=== PATIENT | female | born 2005 | race Caucasian/White ===

== ENCOUNTER 2025-01-11 09:25 | Emergency (ER) | payer MEDICAID, SELFPAY ==
[2025-01-11 09:26] VITALS: BMI 29.2
[2025-01-11 09:49] VITALS: BP 133/84; PULSE 74; RESP 19; O2SAT 96
--- NOTE | 2025-01-11 10:09 | EDNOTE_ITS ---
Upper Extremity Injury RME/HPI General Chief Complaint: Burn/Smoke Inhalation Stated Complaint: RIGHT BURNED PALM, LEFT FIRST FINGER INJURY Time Seen by Provider: 01/11/25 09:53 Source: patient Arrival date/time: 01/11/25 09:25 19-year-old female with no known medical history presents to the emergency room with a chief complaint of a burn to the right palm of her hand that occurred while cooking 2 days ago, and an injury to her left index finger after smashing it on a car door yesterday. Mode of arrival: ambulatory Limitations: no limitations Related Data Home Medications ?Medication ?Instructions ?Recorded ?Confirmed vit no.95-ferrous 1 tab PO QDAY 11/07/19 08/0 04/10 fumarate 28 mg-folic acid 800 mcg tablet () acetaminophen 325 mg capsule 325 mg PO ONCE PM PRN Abd ominal 04/28/20 04/28/20 (Tylenol) Discomfort Previous Rx's ?Medication ?Instructions ?Recorded ibuprofen 800 mg tablet 800 mg PO Q8H PRN pain #30 t abs 04/28/20 bacitracin 500 unit/gram topical 1 applic topical TID #28 grams 01/11/25 ointment cephalexin 500 mg capsule 500 mg PO BID 7 days #14 cap s 01/11/25 Allergies Allergy/AdvReac Type Severity Reaction Status Date / Time fructose AdvReac Intermediate STOMACH Verified 04/28/20 19:17 PAIN,CONSTIPATION,CHEST PAIN,GERD lactose AdvReac Intermediate BLOATING,DIARRHEA,GERD,STOMACH Verified 04/28/20 19:17 ACHE sucrose AdvReac Intermediate STOMACH Verified 04/28/20 19:17 PAIN,DIARRHEA,BLOATING Review of Systems Review of Systems Systems Reviewed: All systems reviewed, normal except as documented Constitutional Constitutional: Reports system reviewed and no additional complaints, except as documented, Denies fatigue, Denies fever(s), Denies headache(s) and Denies weakness Eyes Eyes: Reports system reviewed and no additional complaints, except as documented, Denies blurry vision and Denies change in vision ENT Ears, Nose, Mouth, and Throat: Reports system reviewed and no additional complaints, except as documented, Denies otalgia, Denies headache(s), Denies nasal congestion, Denies throat swelling and Denies vertigo Cardiovascular Cardiovascular: Reports system reviewed and no additional complaints, except as documented, Denies chest pain, Denies dyspnea and Denies dyspnea on exertion Respiratory Respiratory: Reports system reviewed and no additional complaints, except as documented, Denies chest congestion, Denies cough, Denies dyspnea, Denies dyspnea on exertion and Denies wheezing Gastrointestinal Gastrointestinal: Reports system reviewed and no additional complaints, except as documented, Denies abdominal pain, Denies cramping, Denies nausea and Denies vomiting Genitourinary Genitourinary: Reports system reviewed and no additional complaints, except as documented Musculoskeletal Musculoskeletal: Reports system reviewed and no additional complaints, except as documented, Reports arthralgias, Denies back pain and Reports joint swelling Integumentary/Breasts Skin/Breast: Reports system reviewed and no additional complaints, except as documented, Reports skin pain and Reports wounds Neurologic Neurologic: Reports system reviewed and no additional complaints, except as documented, Denies confusion, Denies headache(s), Denies lack of coordination, Denies vertigo and Denies weakness Psychiatric Psychiatric: Reports system reviewed and no additional complaints, except as documented, Denies anxiety, Denies confusion, Denies depression, Denies paranoia, Denies suicidal ideation and Denies tactile hallucinations Endocrine Endocrine: Reports system reviewed and no additional complaints, except as documented and Denies fatigue Hematologic/Lymphatic Hematologic/Lymphatic: Reports system reviewed and no additional complaints, except as documented and Denies lymphadenopathy Allergic/Immunologic Allergic/Immunologic: Reports system reviewed and no additional complaints, except as documented, Denies throat swelling, Denies urticaria and Denies wheezing Past Medical History Past Medical History CARDIAC: Negative Congestive Heart Failure RESPIRATORY: Negative Chronic Obstructive Pulmonary Disease (COPD) GASTROINTESTINAL: Positive Irritable Bowel GENITOURINARY: Negative Renal Disease ENDOCRINE: Negative Diabetes Mellitus Type 1 or Diabetes Mellitus Type 2 HEMATOLOGIC: Positive Anemia PSYCHO/SOCIAL: Positive Depression and Anxiety OTHER HISTORY: Negative Blood Transfusions, MRSA, VRSA or Vancomycin-Resistant Enterococci Surgical History SURGICAL: Negative Section Social History SMOKING STATUS: Never smoker ED Exam General Limitations: Present no limitations General appearance: Present alert and in no apparent distress Head Head exam: Present atraumatic Eye Eye exam: Present normal appearance, PERRL and EOMI ENT ENT exam: Present normal exam, normal oropharynx and mucous membranes moist Neck Neck exam: Present normal inspection, full ROM and trachea midline Chest Chest inspection: Present normal inspection and symmetric chest wall rise Respiratory Respiratory exam: Present normal lung sounds bilaterally Cardiovascular Cardiovascular exam: Present regular rate, normal rhythm and normal heart sounds Abdominal Exam Abdominal exam: Present soft and normal bowel sounds Extremities Exam Extremities exam: Present normal inspection and full ROM Expanded Upper Extremity Exam Shoulder exam: Present normal inspection Arm exam: Present normal inspection Elbow exam: Present normal inspection Forearm/Wrist exam: Present normal inspection Hand exam: Present tenderness Hand L/R front image: 2 1. other (Patient has a second-degree burn to the palm of her hand. There is some blisters that are popped in the area) 2. other (Tenderness and pain to the left tip of the index finger after smashing it on a car door) Back Exam Back exam: Present normal inspection and full ROM Neurological Exam Neurological exam: Present alert, oriented X3 and CN II-XII intact Psychiatric Psychiatric exam: Present normal affect and normal mood Skin Skin exam: Present warm, dry, intact and normal color Expanded Skin Exam Type of lesion: Present other (Burn) Distribution: Present RUE Description: Present tenderness, erythematous, swelling and blisters Course Quality Measures none Orders Category Date Time Status Splint / Immobilizer STAT Care 01/11/25 11:13 Completed XR hand comp LT min 3V Stat Exams 01/11/25 10:09 Completed TET,DIP/PERT AC (Adult)-Tdap [Boostrix Adult (Tdap) Med 01/11/25 11:13 Discontinued Vacc] 0.5 ml IMI .ONCE ONE Vital Signs Vital signs: Vital Signs Pulse Rate 74 01/11/25 09:49 Respiratory Rate 19 01/11/25 09:49 Blood Pressure 133/84 H 01/11/25 09:49 Pulse Oximetry (%) 96 01/11/25 09:49 Oxygen Delivery Method Room Air 01/11/25 09:49 O2 saturation 96% on room air Extremity Injury MDM Narrative MDM Narrative:: 19-year-old female with no known medical history presents to the emergency room with a chief complaint of a burn to the right palm of her hand that occurred while cooking 2 days ago, and an injury to her left index finger after smashing it on a car door yesterday. Patient is hemodynamically stable and in no apparent distress Physical examination shows a second-degree burn to the right palm. The patient has some blisters erythema and pain to the palm of her hand. This injury occurred 2 days ago. Bacitracin, and a Xeroform dressing were used on the palm of her hand. Patient is also complaining of pain and tenderness to the left index finger after smashing her finger in a car door yesterday. An x-ray was completed and the patient does have an acute fracture of the distal phalanx. A finger splint was placed and the patient was educated to follow-up with water quality specialist for further management of her fracture. Patient was discharged and educated to follow-up with primary care provider in the next 24 to 48 hours and return to the emergency room for any evidence of worsening signs or symptoms Patient data External records reviewed:: [facility] previous records Clinical information provided by:: patient Social determinants that could affect healthcare access:: none Patient has the following chronic illnesses:: No chronic illness How is presenting disease/condition affected by chronic disease/condition?: no chronic disease Evaluation data The following diagnostics were reviewed and interpreted by me:: lab results and radiology exam(s) Lab and/or radiology exams considered but not ordered:: Labs and radiology exams considered and ordered Interpretation Summary: Hand [id number]: Acute fractures mid and distal aspect distal phalanx second digit with minimal offset on the lateral view No dislocation IMPRESSION: Acute fractures distal phalanx second digit Medications / Prescriptions Medications or Prescriptions considered but not ordered:: Medication given Medication administrations:: Medication Administration History Discontinued Medications Diphtheria/Tetanus/Acell Pertussis (Diphth,Pertuss(Acell),Tet Vac 0.5 Ml Syr- Adult) 0.5 ml IMi .ONCE ONE Stop: 01/11/25 11:14 Last Admin: 01/11/25 11:43 Dose: 0.5 ml Documented By: FC Rx given Consultations Consultation(s) initiated? (list below): No Diagnosis Upper Extremity Injury Differential Diagnosis: finger sprain, dislocation of finger and other (Second-degree burn to her right arm/finger sprain/finger fracture) Most likely diagnosis given after review of the tests above:: Finger fracture Admission Indicated Admission indicated?: not indicated Admission Request Was there a request for admission?: No Disposition Plan Disposition Plan: Discharge Discharge Attestation Discharge Attestation: The patient and all family members were given an opportunity to ask questions and understood the discharge instructions. Discharge instructions specifically effects, indications for sooner follow up or return to the emergency department, and the expected course of current diagnosis. Patient condition: Stable Discharge Plan Plan Patient Disposition: HOME (Self Care) Disposition Comment: Stable Prescriptions/Referrals Prescriptions/Med Rec: New bacitracin 500 unit/gram ointment 1 applic topical TID Qty: 28 0RF cephalexin 500 mg capsule 500 mg PO BID 7 Days Qty: 14 0RF No Action PNV cmb#95-ferrous fumarate-FA [] 28 mg iron- 800 mcg Tablet 1 tab PO QDAY acetaminophen [Tylenol] 325 mg Capsule 325 mg PO ONCE PM PRN (Reason: Abdominal Discomfort) ibuprofen 800 mg tablet 800 mg PO Q8H PRN (Reason: pain) Qty: 30 0RF Referrals: Mike Rene PA-C [Primary Care Provider] - In 1 week Problem List Clinical Impression: Finger fracture, Burn of palm of hand Patient/Caregiver Discharge Instructions Education Materials: ED Fracture, Finger, Closed, ED BURN Wound Check [No Infection] Additional Instructions: Please follow-up with your primary care provider in the next 24 to 48 hours. You will need a referral to an water quality specialist for the fracture of your finger. Please keep your finger splint in place until you are seen and cleared by the specialist. You also have a burn to the palm of your hand. There is blisters. Antibiotics are sent to your pharmacy please pick them up and take them as indicated. Please follow-up with your primary care provider for this burn as well For any evidence of worsening signs or symptoms return to the emergency room immediately Print Language: Frisian Stand Alone Forms: Marisela Award Info., Work/School Release, Patient Portal Info Letter REGINALDO/MADYSON Supervising Physician REGINALDO/MADYSON Supervising Physician: Dr. Little
--- NOTE | 2025-01-11 10:09 | XR_ITS ---
Examination: Hand, left 3 views Technique: Hand AP, oblique, lateral 3 views Date and time of exam: January 11, 2025 at 10:18 AM INDICATIONS: Crush injury to the hand 3 days ago with second digit pain. FINDINGS: Acute fractures mid and distal aspect distal phalanx second digit with minimal offset on the lateral view No dislocation IMPRESSION: Acute fractures distal phalanx second digit
[2025-01-11] MEDS: DIPHTH,PERTUSS(ACELL),TET VAC 0.5 ML SYR- ADULT IMi (11:43)
== END 2025-01-11 11:52 | disposition home or self-care (01) ==
PROVIDERS: Emergency Provider Family Medicine; PCP Physician Assistant
DX: S62.631A Displaced fracture of distal phalanx of left index finger, initial encounter for closed fracture (principal); T23.252A Burn of second degree of left palm, initial encounter; T31.0 Burns involving less than 10% of body surface; T14.8XXA Other injury of unspecified body region, initial encounter; W23.1XXA Caught, crushed, jammed, or pinched between stationary objects, initial encounter; X08.8XXA Exposure to other specified smoke, fire and flames, initial encounter; Y92.810 Car as the place of occurrence of the external cause; Y93.G3 Activity, cooking and baking; Z23 Encounter for immunization
CPT/HCPCS: 73130; 90471; 90715; 99283

== ENCOUNTER → 2025-01-21 | Outpatient (CLI) | payer MEDICAID, SELFPAY | END | disposition home or self-care (01) | PROVIDERS: PCP Nurse Practitioner Family; Referring Provider Nurse Practitioner Family; Visit Provider Physician Assistant | DX: T23.251A Burn of second degree of right palm, initial encounter (principal); F17.200 Nicotine dependence, unspecified, uncomplicated; F10.90 Alcohol use, unspecified, uncomplicated | CPT/HCPCS: 97597; 97598; 99212; A9270; G0463 ==

== ENCOUNTER → 2025-01-28 | Outpatient (CLI) | payer MEDICAID, SELFPAY | END | disposition home or self-care (01) | LOC: SWHD 14:16 | PROVIDERS: PCP Physician Assistant; Referring Provider Physician Assistant; Visit Provider Surgery | DX: T23.251A Burn of second degree of right palm, initial encounter (principal); F17.200 Nicotine dependence, unspecified, uncomplicated; F10.90 Alcohol use, unspecified, uncomplicated | CPT/HCPCS: 99212; G0463 ==

== ENCOUNTER 2025-09-03 11:01 | Emergency (ER) | payer MEDICAID, SELFPAY ==
[2025-09-03 11:02] VITALS: BMI 32.1
[2025-09-03 11:13] VITALS: BP 120/87; PULSE 70; RESP 16; TEMP 36.7; O2SAT 99
--- NOTE | 2025-09-03 12:06 | XR_ITS ---
Examination: Abdomen sonogram, Limited Date and time of exam: 09/03/2025, 12:17 p.m. INDICATION: Right upper quadrant pain COMPARISON: 10/06/2018 Technique: Real-time valentin scale transabdominal sonographic images of the upper abdomen obtained. Findings: Normal size liver without focal mass. Normal echogenicity. Liver measures 14.8 cm. Minimal sludge within the gallbladder. No evidence of calculi, gallbladder wall thickening or pericholecystic fluid. Normal-appearing 3 mm common bile duct. Pancreatic head appears within normal limits. There is normal hepatopetal flow in the portal vein. The IVC is patent. IMPRESSION: Minimal sludge in the gallbladder. No evidence of cholelithiasis or cholecystitis.
--- NOTE | 2025-09-03 12:07 | EDNOTE_ITS ---
<Statement entered by Kellen Pastor MD - 09/03/25 17:38> As co-signing physician, I was present and available for consult prn. I concur with the plan and care as documented by the midlevel provider. ED Abdominal Pain RME/HPI General Chief Complaint: Abdominal Pain Stated complaint: RUQ ABD PAIN X1 WEEK Time seen by provider: 09/03/25 11:19 Arrival date/time: 09/03/25 11:01 20-year-old female patient came in for evaluation regarding right upper quadrant pain. Patient is been having on and off right upper quadrant pain for at least 1 week, described as sharp pain, sometimes lasting for several minutes. Pain is worse after eating greasy food. Denies any vomiting but complain of nausea. Denies any diarrhea denies any constipation denies any fever denies any abdominal surgery denies any other complaints. No medication was taken prior to ER visit Related Data Home Medications ?Medication ?Instructions ?Recorded ?Confirmed vit no.95-ferrous 1 tab PO QDAY 11/07/19 08/0 04/10 fumarate 28 mg-folic acid 800 mcg tablet () acetaminophen 325 mg capsule 325 mg PO ONCE PM PRN Abd ominal 04/28/20 04/28/20 (Tylenol) Discomfort Previous Rx's ?Medication ?Instructions ?Recorded ibuprofen 800 mg tablet 800 mg PO Q8H PRN pain #30 t abs 04/28/20 bacitracin 500 unit/gram topical 1 applic topical TID #28 grams 01/11/25 ointment cephalexin 500 mg capsule 500 mg PO Q8H 7 days #21 cap s 09/03/25 dicyclomine 20 mg tablet 20 mg PO QID PRN abdominal p ain 09/03/25 #30 tabs metoclopramide HCl 10 mg tablet 10 mg PO Q6H PRN nause a and 09/03/25 (Reglan) vomiting #20 tabs pantoprazole 40 mg tablet,delayed 40 mg PO QDAY #20 ta bs 09/03/25 release (Protonix) Allergies Allergy/AdvReac Type Severity Reaction Status Date / Time fructose AdvReac Intermediate STOMACH Verified 09/03/25 11:05 PAIN,CONSTIPATION,CHEST PAIN,GERD lactose AdvReac Intermediate BLOATING,DIARRHEA,GERD,STOMACH Verified 09/03/25 11:05 ACHE sucrose AdvReac Intermediate STOMACH Verified 09/03/25 11:05 PAIN,DIARRHEA,BLOATING Review of Systems Review of Systems Narrative Review of Systems: Review of system reviewed and within normal limits except mentioned in HPI ED Exam Narrative Physical exam: VITAL SIGNS: Reviewed. GENERAL APPEARANCE: Alert and interactive, follows commands, no acute distress, HEAD AND FACE: Non-traumatic. ENT: PERRL, pink conjunctivitis, eyelid no trauma, Mucous membrane moist. NECK: Supple, nontender, no nuchal rigidity. CHEST: No tenderness, no crepitus, no paradoxical movement, no retractions. LUNGS: Clear, well ventilated, symmetric, no rales, no wheezing, no ronchi, no stridor, good breath sounds bilaterally. HEART: Regular rate, regular rhythm, no murmur, no gallops. ABDOMEN: Soft, positive bowel sounds, nondistended, no guarding, right upper quadrant tenderness, no rebound, no masses, RECTAL: Deferred. GENITAL: Deferred. NEUROLOGICAL: Gross motor function intact sensory function intact, Appropriate for age. MUSCULOSKELETAL: low back nontender, full range of motion. EXTREMITIES: Nontender, full range of motion. SKIN: Color pink, dry, no rash, no lacerations, no abrasions, no contusions. LYMPHATICS: Deferred. Course Quality Measures none Orders Category Date Time Status US gall bladder Stat Exams 09/03/25 12:06 Completed CBC Stat Lab 09/03/25 12:48 Completed Comprehensive Metabolic Panel Stat Lab 09/03/25 12:48 Completed HCG Qualitative,Urine Stat Lab 09/03/25 13:04 Completed Lipase Stat Lab 09/03/25 12:48 Completed Prothrombin Time with INR Stat Lab 09/03/25 12:48 Completed UA, C/S IF [Urinalysis, C/S if Indicated] Stat Lab 09/03/25 13:04 Completed Urine Culture Stat Lab 09/03/25 13:04 Received Famotidine [Pepcid] Med 09/03/25 12:06 Discontinued 40 mg PO X1 ONE Vital Signs Vital signs: Vital Signs Temperature 98.0 F 09/03/25 11:13 Pulse Rate 70 09/03/25 11:13 Respiratory Rate 16 09/03/25 11:13 Blood Pressure 120/87 H 09/03/25 11:13 Pulse Oximetry (%) 99 09/03/25 11:13 Oxygen Delivery Method Room Air 09/03/25 11:13 Abdominal Pain MDM MDM Narrative MDM Narrative:: 20-year-old female patient came in for evaluation regarding right upper quadrant pain. Patient is been having on and off right upper quadrant pain for at least 1 week, described as sharp pain, sometimes lasting for several minutes. Pain is worse after eating greasy food. Denies any vomiting but complain of nausea. Denies any diarrhea denies any constipation denies any fever denies any abdominal surgery denies any other complaints. No medication was taken prior to ER visit Patient CBC showed leukocytosis of 16,000, LFTs are normal total bili is normal ultrasound of the gallbladder showed gallbladder sludge otherwise unremarkable. Urinalysis positive for UTI. Patient was given Pepcid, with significant proved her symptoms stable for discharge home Patient data External records reviewed:: None Clinical information provided by:: patient Social determinants that could affect healthcare access:: none Patient has the following chronic illnesses:: None How is presenting disease/condition affected by chronic disease/condition?: no chronic disease Evaluation data The following diagnostics were reviewed and interpreted by me:: lab results and radiology exam(s) Lab and/or radiology exams considered but not ordered:: None Interpretation Summary: See above Medications / Prescriptions Medications or Prescriptions considered but not ordered:: None Medication administrations:: Medication Administration History Discontinued Medications Famotidine (Famotidine 20 Mg Tablet) 40 mg PO X1 ONE Stop: 09/03/25 12:07 Last Admin: 09/03/25 12:30 Dose: 40 mg Documented By: Pepcid Consultations Consultation(s) initiated? (list below): No Diagnosis Differential diagnosis abdominal pain: abdominal pain and gastroenteritis Most likely diagnosis given after review of the tests above:: Gallbladder sludge, UTI Admission Indicated Admission indicated?: not indicated Admission Request Was there a request for admission?: No Disposition Plan Disposition Plan: Discharge Discharge Attestation Discharge Attestation: The patient was given an opportunity to ask questions and understood the discharge instructions. Discharge instructions specifically effects, indications for sooner follow up or return to the emergency department, and the expected course of current diagnosis. Patient condition: Stable Discharge Plan Plan Patient Disposition: HOME (Self Care) Discharge Disposition comment: stable Prescriptions/Referrals Prescriptions/Med Rec: New pantoprazole [Protonix] 40 mg tablet,delayed release (DR/EC) 40 mg PO QDAY Qty: 20 0RF dicyclomine 20 mg tablet 20 mg PO QID PRN (Reason: abdominal pain) Qty: 30 0RF metoclopramide HCl [Reglan] 10 mg tablet 10 mg PO Q6H PRN (Reason: nausea and vomiting) Qty: 20 0RF cephalexin 500 mg capsule 500 mg PO Q8H 7 Days Qty: 21 0RF No Action PNV no.95-ferrous fumarate-FA [] 28 mg iron- 800 mcg Tablet 1 tab PO QDAY acetaminophen [Tylenol] 325 mg Capsule 325 mg PO ONCE PM PRN (Reason: Abdominal Discomfort) ibuprofen 800 mg tablet 800 mg PO Q8H PRN (Reason: pain) Qty: 30 0RF bacitracin 500 unit/gram ointment 1 applic topical TID Qty: 28 0RF Referrals: Mike Rene PA-C [Primary Care Provider] - In 1 week Problem List Clinical Impression: Gallbladder sludge, UTI (urinary tract infection) Patient/Caregiver Discharge Instructions Discharge Activity: activity as tolerated Education Materials: Understanding Urinary Tract ... Additional Instructions: Thank you for the opportunity for serving you today. You are stable for discharged . You are advised to: Follow-up with your PCP in 1 to 2 days Return to ED for worsening of symptoms Increase oral fluids Take medication as prescribed Print Language: Mohawk Stand Alone Forms: Marisela Award Info., Patient Portal Info Letter REGINALDO/MADYSON Supervising Physician LO Supervising Physician: MD Fior
[2025-09-03] MEDS: FAMOTIDINE 20 MG TABLET 40 MG PO (12:30)
[2025-09-03 12:59] LABS: Basophils # (Auto) 0.0 Thou/mm3 (0.0-0.2); Basophils % (Auto) 0 % (0-2.5); Eosinophils # (Auto) 0.1 Thou/mm3 (0.0-0.5); Eosinophils % (Auto) 1 % (0-10); Hematocrit 41.5 % (36.0-46.0); Hemoglobin 13.5 g/dL (12.0-16.0); Immature Granulocytes Auto 0.10 Thou/mm3 (0.00-0.00); Lymphocytes # (Auto) 2.1 Thou/mm3 (1.0-4.8); Lymphocytes % (Auto) 13 % (10-50); Mean Corpuscular HGB Conc 32.5 g/dl (31.0-37.0); Mean Corpuscular Hemoglobin 26.8 pg (25.0-35.0); Mean Corpuscular Volume 82 fL (80-100); Monocytes # (Auto) 0.9 Thou/mm3 (0.0-0.8); Monocytes % (Auto) 6 % (0-12); Neutrophils # (Auto) 13.5 Thou/mm3 (1.8-7.7); Neutrophils % (Auto) 81 % (37-80); Nucleated Red Blood Cell # 0.00 Thou/mm3 (0.00-0.00); Nucleated Red Blood Cell % 0 /100 WBC (0); Platelet Count 453 Thou/mm3 (140-440); RDW Standard Deviation 41.2 fL (36.4-46.3); Red Blood Count 5.04 Miln/mm3 (4.00-5.20); White Blood Count 16.7 Thou/mm3 (3.6-11.0)
[2025-09-03 13:15] LABS: Alanine Aminotransferase 30 U/L (10-49); Albumin, Serum 5.0 gm/dL (3.5-5.0); Albumin/Globulin Ratio 1.5 (1.2-2.2); Alkaline Phosphatase 95 U/L (46-116); Anion Gap 8 (7-16); Aspartate Amino Transferase 26 U/L (0-34); BUN/Creatinine Ratio 9 Ratio (12-20); Bilirubin,Total 0.5 mg/dL (0.3-1.2); Blood Urea Nitrogen 6 mg/dL (9-23); Calcium 10.0 mg/dL (8.3-10.6); Calcium (Corrected) 10.0 mg/dL (8.5-10.1); Carbon Dioxide 26.6 mMol/L (20.0-31.0); Chloride 105 mMol/L (98-107); Creatinine (Component) 0.7 mg/dL (0.6-1.3); Estimated Creatinine Clearance 119.5 mL/min (>60); Globulin 3.4 gm/dL (2.3-3.5); Glucose 86 mg/dL (74-106); Lipase 23 U/L (12-53); Osmolality,Calculated 276 (275-295); Potassium 4.1 mMol/L (3.4-5.1); Sodium 140 mMol/L (136-145); Total Protein 8.4 gm/dL (5.7-8.2); eGFR > 60 See Note
[2025-09-03 13:15] LABS: Collection Type, Urine Clean Catch
[2025-09-03 13:18] LABS: INR 0.9 (0.9-1.3); Prothrombin Time 10.1 Seconds (9.0-12.2)
[2025-09-03 13:21] LABS: HCG Qualitative,Urine Negative
[2025-09-03 13:23] LABS: Bacteria,Urine Rare; Bilirubin,Urine Negative (Negative); Blood,Urine Negative (Negative); Clarity,Urine Clear (Clear/Hazy); Color,Urine Lt-Yellow (Lt Yel-Yel); Glucose, Urine Negative (Negative); Ketones,Urine Trace (Negative); Leukocyte Esterase,Urine Positive (Negative); Nitrite,Urine Positive (Negative); PH,Urine 7.0 (5.0-7.0); Protein,Urine Negative (Neg - Trace); RBC,Urine 4 /hpf (0-3); Specific Gravity,Urine 1.007 (1.001-1.035); Squamous Epithelial Cell,Urine 4 /hpf (0-5); Urobilinogen,Urine Negative mg/dL (0.0-1.0); WBC,Urine 7 /hpf (0-5)
[2025-09-03 13:37] LABS: Culture Indicated,Urine Yes
[2025-09-03 14:18] VITALS: BP 122/79; PULSE 64; RESP 15; TEMP 36.4; O2SAT 98
== END 2025-09-03 14:48 | disposition home or self-care (01) ==
PROVIDERS: Nurse Practitioner Family; Emergency Provider Emergency Medicine; PCP Physician Assistant
DX: K82.8 Other specified diseases of gallbladder (principal); N39.0 Urinary tract infection, site not specified
CPT/HCPCS: 36415; 76705; 80053; 81001; 81025; 83690; 85025; 85610; 87077; 87086; 87186; 99283; A9270